=== PATIENT | female | born 1995 | race Caucasian/White ===

== ENCOUNTER 2022-06-08 09:38 | Outpatient (CLI) | payer MEDICAID, SELFPAY | END 2022-06-08 09:39 | disposition home or self-care (01) | LOC: RAD 09:41 | PROVIDERS: PCP Family Medicine Adult Medicine; Visit Provider Family Medicine Adult Medicine | DX: Z13.6 Encounter for screening for cardiovascular disorders (principal); Z79.899 Other long term (current) drug therapy | CPT/HCPCS: 36415; 72040; 72072; 80053; 80061; 83036; 84443; 85025 ==

== ENCOUNTER 2022-10-06 16:44 | Emergency (ER) | payer MEDICAID, SELFPAY ==
[2022-10-06 18:08] VITALS: BMI 36.6
[2022-10-06 18:12] VITALS: BP 131/93; PULSE 109; RESP 18; TEMP 36.7; O2SAT 99
--- NOTE | 2022-10-06 21:15 | W.ED.ALLEREA ---
HPI - Allergic Reaction General: Chief complaint: Allergic Reaction Stated complaint: face swelling, allergic reaction Time Seen by Provider: 10/06/22 21:04 History of Present Illness: HPI narrative: Ms. Jarquin is a 26-year-old lady who presents to the emergency department due to concern over dental infection and facial swelling. She initially noticed facial swelling and some itchiness approximately 4 weeks ago initially believing that it was related to pet dander however it continued and she believes it may have been related to a new medication which she has since stopped taking. She has tried Benadryl but still has facial swelling. Additionally she noticed increased dental pain and left-sided facial swelling with warmth 2 or 3 days ago and has a history of poor dentition. Denies signs of anaphylaxis. No difficulty speaking, swallowing, or breathing. No fevers. Intensity symptoms is moderate. Course has persisted. No other specific changes in health, exacerbating, or alleviating factors identified. Onset (ago): week(s) Exposure: medication Review of Systems General: Reports: 10 or more systems reviewed and unremarkable except in HPI and below PFSH ED PFSH: Medical History Allergic reaction to animal Anxiety and depression control counseling Borderline personality disorder in adult Chronic nausea Chronic neck and back pain Hypothyroidism Major depressive disorder, recurrent, moderate Obesity, morbid (more than 100 lbs over ideal weight or BMI > 40) Psychiatric care Family History Other Diabetes Social History Smoking and tobacco status: current some day smoker e-cigarettes E-Cigarette Details: vaporizer device and with nicotine E-cig/vape details: Refill/month. Quit status (tobacco): not considering quitting Second hand smoke exposure: Yes (Sometimes.) Smoking risk assessment/counseling performed?: No Alcohol intake: never Desire information about alcohol rehabilitation?: No Counseling given: No Substance/Drug Use: current Substance/Drug use frequency: Special occassions/opportunity only Other substance/drug use details: Delta 8 Desire information about substance/drug rehabilitation?: No Counseling given: No Lives independently: Yes Marital status: Single Current occupational status: unemployed Female Reproductive History: Date of last menstrual period: 09/18/22 Physical Exam Const: COMMON NORMALS: alert GENERAL APPEARANCE: cooperative and well developed HENMT: COMMON NORMALS: normocephalic and atraumatic HEAD & SCALP: normocephalic and atraumatic THROAT: posterior oropharynx normal OTHER: Patient with edema to bilateral cheeks, periorbital areas, and more significant on the left. No evidence of fracture or dislocation. Oropharynx is unremarkable. Left sided poor dentition without evidence of drainable abscess, likely infection present. Eye: COMMON NORMALS: conjunctivae normal CONJUNCTIVA: Yes conjunctivae normal SCLERA: sclerae normal Neck/C-Spine: COMMON NORMALS: supple GENERAL: Yes trachea midline Resp: COMMON NORMALS: normal respiratory effort EFFORT & INSPECTION: Yes able to speak in complete sentences Cardio: COMMON NORMALS: regular rate and regular rhythm RATE: regular rate RHYTHM: regular rhythm GI: COMMON NORMALS: Soft to palpation PALPATION: Yes Soft to palpation and No Tenderness to palpation present (GI) PERCUSSION: normal to percussion Extremity: GENERAL: Yes normal exam except as noted and No edema Neuro: COMMON NORMALS: moves all extremities SENSORIUM/ORIENTATION: Yes alert and No Orientation impaired Psych: COMMON NORMALS: mental status grossly normal and Normal thought process present THOUGHT PROCESS: Normal thought process present Course Vital Signs: Vital signs: Vital Signs Temperature 98.1 F 10/06/22 18:12 Pulse Rate 112 H 10/06/22 21:37 Respiratory Rate 18 10/06/22 18:12 Blood Pressure 123/87 10/06/22 21:37 Pulse Oximetry 98 10/06/22 21:37 Oxygen Delivery Me thod 10/06/22 21:19 MDM - Allergic Reaction Medical Decision Making 26-year-old lady presenting with facial swelling and concern over dental infection. Symptoms of been ongoing and are gradually proving with Benadryl however dental infection has been recent. There is no evidence of anaphylaxis or airway compromise. Satisfactory for outpatient management with antibiotic treatment and allergic reaction treatment. The results of ED evaluation were discussed with the patient including prescriptions and/or symptomatic cares (if applicable) including appropriate and responsible use, followup plan, and return precautions. The patient verbalized understanding and felt safe for discharge. Medical Records I reviewed the patient's medical records. Lab Data I reviewed the patient's lab results. Discharge Plan Discharge Patient Disposition: Home Clinical Impression: Allergic reaction, Dental infection Condition: Stable Prescriptions: New amoxicillin-pot clavulanate 875-125 mg tablet 1 tab PO BID Qty: 20 0RF No Action buspirone 10 mg tablet 10 mg PO .q8 PRN (Reason: panic attacks) Qty: 30 2RF levothyroxine 100 mcg capsule 100 mcg PO DAILY Qty: 30 5RF omeprazole magnesium [Prilosec OTC] 20 mg tablet,delayed release (DR/EC) 20 mg PO DAILY PRN (Reason: abdominal pain) Qty: 30 3RF ondansetron HCl 4 mg tablet 4 mg PO Q8H PRN (Reason: nausea and vomiting) Qty: 30 0RF diphenhydramine HCl [Benadryl] 25 mg capsule 25 mg PO ONCE PRN Discharge Orders: Discharge ED (Routine); Ordered 10/06/22 Ordered By: Yuri Crocker Referrals: Blake Jensen MD [Primary Care Provider] - Discharge Diet: Usual diet Discharge Activity: Increase activity as tolerated Patient Instructions: Dental Abscess (ED), General Allergic Reaction (ED) Activity Restrictions/Additional Instructions: Thank you for visiting the emergency department. You were seen and evaluate for facial swelling and concern over dental infection. The most likely cause of your facial swelling is unclear though may be related to a medication reaction or allergic reaction. It does appear that you have dental infection as well. I will treat these as discussed. Please follow-up with a primary care provider and a dentist. Return to the emergency department for worsening symptoms, trouble breathing or swallowing, progression of allergic reaction symptoms, or anything else that you are concerned about a feel needs emergency department evaluation. Coding Level of Care Code ED Group Director Experience for [facility]
[2022-10-06 21:19] VITALS: BP 150/106; PULSE 114; O2SAT 98
[2022-10-06] MEDS: predniSONE 20 mg Tablet 60 MG PO (21:33)
[2022-10-06] MEDS: famotidine 20 mg Tablet 40 MG PO (21:33)
[2022-10-06] MEDS: amoxicillin-clav 875-125 mg Tablet 1 TAB PO (21:33)
[2022-10-06 21:37] VITALS: BP 123/87; PULSE 112; O2SAT 98
== END 2022-10-06 21:40 | disposition home or self-care (01) ==
PROVIDERS: Emergency Provider Emergency Medicine; PCP Family Medicine Adult Medicine
DX: T78.40XA Allergy, unspecified, initial encounter (principal); K04.7 Periapical abscess without sinus; F17.290 Nicotine dependence, other tobacco product, uncomplicated
CPT/HCPCS: 99283; J7512

== ENCOUNTER → 2022-11-12 15:18 | Outpatient (BNVA) | payer MEDICAID, SELFPAY | PROVIDERS: PCP Family Medicine Adult Medicine; Visit Provider Family Medicine Adult Medicine | DX: J30.81 Allergic rhinitis due to animal (cat) (dog) hair and dander (principal); R22.0 Localized swelling, mass and lump, head; E03.9 Hypothyroidism, unspecified; G47.00 Insomnia, unspecified | CPT/HCPCS: 82785; 84443; 86003 ==

== ENCOUNTER → 2023-05-17 15:36 | Outpatient (BNVA) | payer MEDICAID, SELFPAY | PROVIDERS: PCP Family Medicine Adult Medicine; Visit Provider Family Medicine Adult Medicine | DX: E03.9 Hypothyroidism, unspecified (principal); F41.1 Generalized anxiety disorder; F41.9 Anxiety disorder, unspecified; F32.A Depression, unspecified; R11.0 Nausea | CPT/HCPCS: 80053; 84443; 85025 ==

== ENCOUNTER → 2023-09-18 13:20 | Outpatient (BNVA) | payer MEDICAID, SELFPAY | PROVIDERS: PCP Family Medicine Adult Medicine; Visit Provider Nurse Practitioner | DX: Z20.822 Contact with and (suspected) exposure to COVID-19 (principal); Z11.52 Encounter for screening for COVID-19 | CPT/HCPCS: 87426 ==

== ENCOUNTER → 2024-02-15 14:35 | Outpatient (BNVA) | payer MEDICAID, SELFPAY | PROVIDERS: PCP Family Medicine Adult Medicine; Visit Provider Family Medicine Adult Medicine | DX: F41.1 Generalized anxiety disorder (principal); E03.9 Hypothyroidism, unspecified; E66.9 Obesity, unspecified; M54.2 Cervicalgia; M54.9 Dorsalgia, unspecified; G89.29 Other chronic pain; Z30.09 Encounter for other general counseling and advice on contraception; Z98.890 Other specified postprocedural states; F64.9 Gender identity disorder, unspecified | CPT/HCPCS: 80053; 84443; 85025 ==

== ENCOUNTER → 2025-02-19 13:46 | Outpatient (BNVA) | payer MEDICAID, SELFPAY | PROVIDERS: PCP Family Medicine; Visit Provider Family Medicine | DX: E03.9 Hypothyroidism, unspecified (principal); E66.01 Morbid (severe) obesity due to excess calories | CPT/HCPCS: 80053; 83036; 84439; 84443; 85025 ==